=== PATIENT | female | born 1945 | race Caucasian/White ===

== ENCOUNTER 2023-06-08 09:47 | Outpatient (CLI) | payer MEDICARE | END 2023-06-08 09:48 | disposition home or self-care (01) | LOC: CSHULT 09:47 | PROVIDERS: ATTEND Physician Assistant | DX: N28.1 Cyst of kidney, acquired (principal); R19.00 Intra-abdominal and pelvic swelling, mass and lump, unspecified site; R19.03 Right lower quadrant abdominal swelling, mass and lump | CPT/HCPCS: 76770; 76857 ==